=== PATIENT | male | born 1960 | race Hispanic/Latino ===

== ENCOUNTER 2021-12-09 12:07 | Inpatient (IN) | payer BC, SELFPAY ==
[2021-12-09] MEDS ORDERED: Iopamidol-370 76% 500 ML 1 ML ONE (12:08)
[2021-12-09 12:42] LABS: #Basophils 0.1 thou/uL (0.0-0.2); #Eosinphils 0.1 thou/uL (0.0-0.7); #Lymphocytes 3.5 thou/uL (1.20-3.40); #Monocytes 0.6 thou/uL (0.11-0.59); #Neutrophils 4.5 thou/uL (1.40-6.50); %Basophils 1.1 % (0.0-1.0); %Eosinophils 1.5 % (0.0-10.0); %Lymphocytes 40.1 % (21.0-51.0); %Monocytes 6.7 % (0.0-10.0); %Neutrophils 50.6 % (42.0-75.0); Hemoglobin 17.8 g/dL (14.0-18.0); Mean Corpuscular HGB CONC 32.9 g/dL (32.0-36.0); Mean Corpuscular Hemoglobin 30.6 pg (27.0-31.0); Mean Platelet Volume 7.5 fL (7.4-10.4); Platelet Count 244 thou/uL (130-400); RBC Distribution Width 11.7 % (11.5-14.5); Red Blood Cell (RBC) Count 5.83 mill/uL (4.70-6.10); White Blood Cell (WBC) Count 8.8 thou/uL (4.8-10.8)
[2021-12-09 12:52] LABS: Prothrombin Time 13.1 sec (12.0-14.7)
[2021-12-09 13:21] LABS: CRP (Inflammatory) 0.68 mg/dL (= or < 0.5)
[2021-12-09 13:22] LABS: Acetaminophen Less than 10.0 mcg/mL (10.0-30.0); Alcohol Less than 10 mg/dL (Less than 10); Salicylate Less than 8.0 mg/dL (15.0-30.0)
[2021-12-09 13:23] LABS: ALT (SGPT) 21 U/L (8-55); AST (SGOT) 19 U/L (5-34); Albumin 4.2 g/dL (3.4-4.8); Alkaline Phosphatase 72 U/L (40-110); Anion Gap 18 mmol/L (10-20); BUN (Urea Nitrogen) 12 mg/dL (8.4-25.7); Bilirubin, Total 1.1 mg/dL (0.2-1.2); Calc. Creatinine Clearance 0 mL/min (70-130); Calcium 9.6 mg/dL (7.8-10.44); Carbon Dioxide 19 mmol/L (23-31); Chloride 101 mmol/L (98-107); Estimated GFR 102; Globulin 3.4 g/dL (2.4-3.5); Glucose 239 mg/dL (80-115); Potassium 4.2 mmol/L (3.5-5.1); Protein, Total 7.6 g/dL (5.8-8.1); Sodium 134 mmol/L (136-145)
[2021-12-09 13:34] LABS: Bilirubin Negative (Negative); Blood, Urine Negative (Negative); Clarity Clear (Clear); Glucose, Urine (Dipstick) >=1000 mg/dL (Negative); Ketone, Urine Trace mg/dL (Negative); Leukocyte 250 Leu/uL (Negative); Nitrite Negative (Negative); Protein, Urine (Dipstick) Negative (Neg-Trace); Squamous Epithelial 0-3 HPF (0-3); Urobilinogen Normal mg/dL (Less than 2); WBC/HPF 0-3 HPF (0-3); pH, Urine 7.5 (5.0-9.0)
[2021-12-09 13:39] LABS: Amphetamine Not Detected (NotDetected); Barbiturates Screen Not Detected (NotDetected); Benzodiazepine Screen Not Detected (NotDetected); Cocaine Metabolite Screen Not Detected (NotDetected); Methadone Not Detected (NotDetected); Methamphetamine Not Detected (NotDetected); Opiate Screen Not Detected (NotDetected); Oxycodone Screen Not Detected (NotDetected); Phencyclidine (PCP) Not Detected (NotDetected); THC/Cannabinoid Screen Detected (NotDetected); Tricyclic Screen Not Detected (NotDetected)
[2021-12-09 13:46] LABS: Bacteria/HPF 1+ HPF (None Seen); Specific Gravity, Urine 1.057 (1.002-1.036)
[2021-12-09 13:53] LABS: SARS-CoV-2 NAA Rapid Test Not Detected (NotDetected)
[2021-12-09] MEDS ORDERED: hydrALAZINE 20 MG/ML VIAL SLOW IVP PRN (14:23)
[2021-12-09] MEDS ORDERED: Acetaminophen 325 MG TAB PO PRN (15:11)
[2021-12-09 16:10] VITALS: BMI 35.5
[2021-12-09] MEDS ORDERED: FLU VACC QS2022-23(6MOS UP)/PF 60 MCG/0.5 ML SYRINGE IM ONE (16:30)
[2021-12-09] MEDS ORDERED: Ondansetron PF 4 MG/2 ML Vial IVP PRN (17:15)
[2021-12-09] MEDS: Insulin Regular 300 UNITS/3 ML VIAL SC PRN (17:39)
[2021-12-09] MEDS: Atorvastatin Calcium 40 MG TAB PO SCH (22:25)
[2021-12-09] MEDS ORDERED: Dextrose 50% Abboject 50 ML SYRINGE SLOW IVP PRN (22:29)
[2021-12-09] MEDS ORDERED: Insulin Regular 300 UNITS/3 ML VIAL SC PRN (22:29)
[2021-12-09] MEDS ORDERED: Dextrose 5% in Water 1,000 ML IV PRN (22:29)
[2021-12-10 05:27] LABS: #Basophils 0.1 thou/uL (0.0-0.2); #Eosinphils 0.2 thou/uL (0.0-0.7); #Lymphocytes 3.1 thou/uL (1.20-3.40); #Monocytes 0.7 thou/uL (0.11-0.59); #Neutrophils 4.7 thou/uL (1.40-6.50); %Basophils 0.9 % (0.0-1.0); %Eosinophils 1.8 % (0.0-10.0); %Lymphocytes 35.3 % (21.0-51.0); %Monocytes 8.4 % (0.0-10.0); %Neutrophils 53.6 % (42.0-75.0); Hemoglobin 16.9 g/dL (14.0-18.0); Mean Corpuscular HGB CONC 33.4 g/dL (32.0-36.0); Mean Corpuscular Hemoglobin 30.7 pg (27.0-31.0); Mean Corpuscular Volume 91.9 fl (78.0-98.0); Mean Platelet Volume 7.2 fL (7.4-10.4); Platelet Count 253 thou/uL (130-400); RBC Distribution Width 11.7 % (11.5-14.5); Red Blood Cell (RBC) Count 5.49 mill/uL (4.70-6.10); White Blood Cell (WBC) Count 8.7 thou/uL (4.8-10.8)
[2021-12-10 05:50] LABS: Anion Gap 13 mmol/L (10-20); BUN (Urea Nitrogen) 11 mg/dL (8.4-25.7); Calc. Creatinine Clearance 152 mL/min (70-130); Calcium 8.9 mg/dL (7.8-10.44); Carbon Dioxide 24 mmol/L (23-31); Cardiac Risk 5.3 (Less than 4.5); Chloride 101 mmol/L (98-107); Cholesterol 147 mg/dl (< 200 Desired); Estimated GFR 104; Glucose 182 mg/dL (80-115); HDL Cholesterol 28 mg/dL (>60 Neg Risk); LDL Cholesterol, Calculated 66 mg/dL; Potassium 3.9 mmol/L (3.5-5.1); Sodium 134 mmol/L (136-145); Triglycerides 263 mg/dL (Less than 150)
[2021-12-10] MEDS: Insulin Regular 300 UNITS/3 ML VIAL SC PRN ×3 (05:52→17:26)
[2021-12-10] MEDS: Aspirin 325 mg Enteric Coated Tablet PO SCH (08:41)
[2021-12-10] MEDS: Enoxaparin Sodium 40 MG/0.4 ML SYRINGE SC SCH (08:42)
[2021-12-10 15:49] LABS: Hemoglobin A1c 8.9 % (4.0-6.0)
[2021-12-10] MEDS ORDERED: Insulin Glargine 30 UNITS/0.3 ML VIAL SC SCH (21:00)
[2021-12-10] MEDS: Atorvastatin Calcium 40 MG TAB PO SCH (21:09)
[2021-12-11 05:58] LABS: #Basophils 0.1 thou/uL (0.0-0.2); #Eosinphils 0.2 thou/uL (0.0-0.7); #Lymphocytes 2.9 thou/uL (1.20-3.40); #Monocytes 0.8 thou/uL (0.11-0.59); %Basophils 0.9 % (0.0-1.0); %Eosinophils 1.7 % (0.0-10.0); %Lymphocytes 32.7 % (21.0-51.0); %Monocytes 8.8 % (0.0-10.0); %Neutrophils 55.9 % (42.0-75.0); Hemoglobin 17.7 g/dL (14.0-18.0); Mean Corpuscular HGB CONC 34.6 g/dL (32.0-36.0); Mean Corpuscular Volume 92.5 fl (78.0-98.0); Mean Platelet Volume 7.4 fL (7.4-10.4); Platelet Count 229 thou/uL (130-400); RBC Distribution Width 11.6 % (11.5-14.5); Red Blood Cell (RBC) Count 5.52 mill/uL (4.70-6.10); White Blood Cell (WBC) Count 8.9 thou/uL (4.8-10.8)
[2021-12-11 06:05] LABS: Anion Gap 12 mmol/L (10-20); BUN (Urea Nitrogen) 11 mg/dL (8.4-25.7); Calc. Creatinine Clearance 154 mL/min (70-130); Calcium 8.9 mg/dL (7.8-10.44); Carbon Dioxide 25 mmol/L (23-31); Chloride 101 mmol/L (98-107); Estimated GFR 104; Glucose 166 mg/dL (80-115); Potassium 3.6 mmol/L (3.5-5.1); Sodium 134 mmol/L (136-145)
[2021-12-11] MEDS: Insulin Regular 300 UNITS/3 ML VIAL SC PRN ×2 (06:48→11:03)
[2021-12-11] MEDS: Enoxaparin Sodium 40 MG/0.4 ML SYRINGE SC SCH (08:43)
[2021-12-11] MEDS: Aspirin 325 mg Enteric Coated Tablet PO SCH (08:43)
[2021-12-11] MEDS ORDERED: Clopidogrel Bisulfate 75 MG TAB PO SCH (09:00)
[2021-12-11 12:31] VITALS: TEMP 97.9
[2021-12-11 13:16] VITALS: BP 162/97
== END 2021-12-11 16:15 | disposition home or self-care (01) | DRG 65 ==
LOC: ERS 12:07 → ERHOLD 13:44 → NEURO 15:31 → OBSVTOIN 12-10 15:07
PROVIDERS: ADMIT Internal Medicine; ATTEND Student in an Organized Health Care Education/Training Program
DX: I63.81 Other cerebral infarction due to occlusion or stenosis of small artery (principal); G81.91 Hemiplegia, unspecified affecting right dominant side; E11.65 Type 2 diabetes mellitus with hyperglycemia; I10 Essential (primary) hypertension; Z20.822 Contact with and (suspected) exposure to COVID-19; G51.0 Bell's palsy; R29.703 NIHSS score 3; Z79.82 Long term (current) use of aspirin; Z88.8 Allergy status to other drugs, medicaments and biological substances
CPT/HCPCS: 36415; 36416; 70450; 70496; 70498; 70551; 71045; 80048; 80053; 80061; 80306; 80307; 81003; 81015; 82550; 83036; 83605; 84443; 84484; 85025; 85610; 85652; 85730; 86140; 90471; 90686; 93005; 93306; 94760; G0008; J1650; J1815; Q9967; U0002